=== PATIENT | female | born 1970 | race Caucasian/White ===

== ENCOUNTER → 2016-09-07 | Outpatient (CLI) | payer BC ==
--- NOTE | 2016-09-07 20:34 | Diagnostic Imaging Report ---
EXAMINATION: Right breast digital diagnostic mammogram with CAD. The current study was also evaluated with a Computer Aided Detection (CAD) system. INDICATION: Asymmetry along the central aspect of the right MLO view, implant displaced view, in particular showed the asymmetry. COMPARISON: 02/09/16. FINDINGS: The area of asymmetry appears less prominent on the current exam in the central aspect of the image displaced right MLO view, just above the nipple line, in favor of summation artifact of parenchyma. The implant appears intact. IMPRESSION: Less prominent asymmetry implant displaced right MLO view of the summation artifact of parenchyma. Another followup when the patient is due for her bilateral mammogram in January 2017 is recommended. ACR BI-RADS Category 3: Probably benign findings. Result letter will be mailed to the patient. Note: At least 10% of breast cancer is not imaged by mammography. Dictated by: Dictated on workstation # [id number]
== END ==
LOC: RAD 13:43
PROVIDERS: ATTEND Nurse Practitioner
DX: R92.8 Other abnormal and inconclusive findings on diagnostic imaging of breast (principal)

== ENCOUNTER → 2017-04-19 | Outpatient (CLI) | payer BC ==
--- NOTE | 2017-04-20 23:03 | Diagnostic Imaging Report ---
Bilateral diagnostic mammogram INDICATION: Followup exam The current study was also evaluated with a Computer Aided Detection (CAD) system. The screening mammogram performed on 02/09/16 noted asymmetric density in the central aspect of the implant on the displaced MLO view of the right breast. The subsequent diagnostic mammogram and ultrasound exam of 03/02/16 failed to show any sign of malignancy. The followup diagnostic mammogram of 09/07/16 was also unremarkable for malignancy. On this exam, there is no evidence for for malignancy in this portion of the breast. The fibroglandular tissue overlying the implants in each breast is heterogeneously dense. This does limit the sensitivity of this exam. When compared to the previous study there has been no significant change. There is no primary or secondary sign of malignancy noted. The implants themselves appear stable. There is no sign of an extracapsular rupture of either implant. IMPRESSION: 1. There is no evidence of malignancy. 2. The implants appear stable. There is no evidence for an extracapsular rupture of either implant. 3. The patient should have followup screening mammogram in one year for continued evaluation. ACR BI-RADS Category 1: Negative. Result letter will be mailed to the patient. Note: At least 10% of breast cancer is not imaged by mammography. Dictated by: Dictated on workstation # [id number]
== END ==
LOC: RAD 12:21
PROVIDERS: ATTEND Obstetrics & Gynecology
DX: R92.8 Other abnormal and inconclusive findings on diagnostic imaging of breast (principal)
CPT/HCPCS: 77066

== ENCOUNTER → 2018-05-01 | Outpatient (CLI) | payer BC ==
--- NOTE | 2018-05-01 19:46 | Diagnostic Imaging Report ---
INDICATION: Routine screening. COMPARISON: Comparison is made with prior studies from 04/19/2017 and 02/09/2016. TECHNIQUE: 2D and 3D bilateral screening mammography was performed with computer-aided detection (CAD) system. FINDINGS: Bilateral breast implants are again noted. Implant contours appear smooth. No definite evidence of extracapsular rupture is seen. Scattered fibroglandular densities throughout both breasts are noted. The parenchymal pattern is stable. No mass or malignant appearing microcalcifications are seen. The axillae are unremarkable. IMPRESSION: No mammographic features suspicious for malignancy are identified. ACR BI-RADS Category 2: Benign findings. Result letter will be mailed to the patient. Note: At least 10% of breast cancer is not imaged by mammography. Dictated by: Dictated on workstation # [id number]
== END ==
LOC: RAD 12:41
PROVIDERS: ATTEND Nurse Practitioner
DX: Z12.31 Encounter for screening mammogram for malignant neoplasm of breast (principal)
CPT/HCPCS: 77067

== ENCOUNTER → 2019-06-18 | Outpatient (CLI) | payer BC ==
--- NOTE | 2019-06-18 13:21 | Diagnostic Imaging Report ---
INDICATION: Routine screening. COMPARISON: Comparison is made with prior mammogram from 05/01/2018 and 04/19/2017. 2-D and 3-D bilateral screening mammography was performed. The current study was also evaluated with a Computer Aided Detection (CAD) system. 3-D tomosynthesis was also performed and reviewed. FINDINGS: Bilateral breast implants are again noted. Implant contours appear smooth. Scattered fibroglandular densities throughout both breasts are noted. The parenchymal pattern is stable. No mass or malignant-appearing microcalcifications are seen. Axillae are unremarkable. IMPRESSION: No mammographic features suspicious for malignancy are identified. ACR BI-RADS Category 2: Benign findings. Result letter will be mailed to the patient. Note: At least 10% of breast cancer is not imaged by mammography. Dictated by: Dictated on workstation # [id number]
== END ==
LOC: RAD 10:56
PROVIDERS: ATTEND Obstetrics & Gynecology
DX: Z12.31 Encounter for screening mammogram for malignant neoplasm of breast (principal)
CPT/HCPCS: 77067

== ENCOUNTER → 2020-06-19 | Outpatient (CLI) | payer BC ==
--- NOTE | 2020-06-19 11:43 | Diagnostic Imaging Report ---
Digital mammogram bilateral screening COMPARISONS: 06/18/2019, 05/01/2018 and 04/19/2017. There are no current complaints. FINDINGS: There are bilateral breast implants in place. The implants appear similar to the prior exam. There is no sign of an extracapsular rupture of either implant. The fibroglandular tissue overlying the implants is heterogeneously dense. This does limit the sensitivity of this exam. Overall, there does not appear to have been any significant change. There is no primary or secondary sign of malignancy noted. IMPRESSION: 1. There is no evidence for malignancy. 2. The implants appear stable. There is no sign of an extracapsular rupture of either implant. ACR BI-RADS Category 1: Negative. Result letter will be mailed to the patient. Note: At least 10% of breast cancer is not imaged by mammography. Dictated by: Dictated on workstation # [id number]
== END ==
LOC: RAD 10:51
PROVIDERS: ATTEND Obstetrics & Gynecology
DX: Z12.31 Encounter for screening mammogram for malignant neoplasm of breast (principal)
CPT/HCPCS: 77063; 77067

== ENCOUNTER → 2021-06-21 | Outpatient (CLI) | payer BC ==
--- NOTE | 2021-06-21 12:55 | Diagnostic Imaging Report ---
INDICATION: Routine screening. COMPARISON: 06/19/2020 and 06/18/2019. TECHNIQUE: 2D and 3D bilateral screening mammography was performed with CAD. FINDINGS: Bilateral breast implants are again noted. The implant contours remain smooth. Both breasts are heterogeneously dense, limiting the sensitivity of mammography. The parenchymal pattern appears to be stable. No mass or malignant-appearing microcalcifications are seen. The axillae are unremarkable. IMPRESSION: No mammographic features suspicious for malignancy are identified. ACR BI-RADS Category 2: Benign findings. Result letter will be mailed to the patient. Note: At least 10% of breast cancer is not imaged by mammography. Dictated by: Dictated on workstation # [id number]
== END ==
LOC: RAD 11:15
PROVIDERS: ATTEND Obstetrics & Gynecology
DX: Z12.31 Encounter for screening mammogram for malignant neoplasm of breast (principal)
CPT/HCPCS: 77063; 77067

== ENCOUNTER → 2022-03-07 | Outpatient (CLI) | payer BC ==
--- NOTE | 2022-03-07 12:28 | Diagnostic Imaging Report ---
PROCEDURE: CT abdomen and pelvis without contrast. TECHNIQUE: Multiple contiguous axial images were obtained through the abdomen and pelvis without the use of intravenous contrast. Auto Exposure Controls were utilized during the CT exam to meet ALARA standards for radiation dose reduction. INDICATION: Lower pelvic pain and bladder pain. COMPARISON: No prior studies are available for comparison. FINDINGS: The lung bases are clear. No focal liver mass is identified. No biliary ductal dilatation is seen. The pancreas and spleen are unremarkable. No adrenal mass is detected. No renal calculi are detected. The aorta is nonaneurysmal. The small and large bowel loops are of normal caliber. There is no obstruction. No bladder calculi are seen. No definite ureteric calculi are detected. Pelvic calcifications are consistent with phleboliths. No free fluid or fluid collection is seen. The bony structures appear nonacute. IMPRESSION: Unremarkable noncontrast CT of the abdomen and pelvis. No definite urinary tract calculus or obstruction is seen. No inflammatory changes are identified. Dictated by: Dictated on workstation # [id number]
== END ==
LOC: RAD 11:45
PROVIDERS: ATTEND Family Medicine
DX: R10.13 Epigastric pain (principal); R10.2 Pelvic and perineal pain; R31.9 Hematuria, unspecified
CPT/HCPCS: 74176

== ENCOUNTER → 2022-06-22 | Outpatient (CLI) | payer BC ==
--- NOTE | 2022-06-22 15:57 | Diagnostic Imaging Report ---
INDICATION: Routine screening. COMPARISON: 06/21/2021 and 06/19/2020. TECHNIQUE: 2D and 3D bilateral screening mammography was performed with CAD. FINDINGS: Bilateral breast implants are again noted. The implant contours remain smooth. Both breasts are heterogeneously dense, limiting the sensitivity of mammography. No mass or malignant-appearing microcalcifications are seen. The axillae are unremarkable. IMPRESSION: No mammographic features suspicious for malignancy are identified. ACR BI-RADS Category 2: Benign findings. Result letter will be mailed to the patient. Note: At least 10% of breast cancer is not imaged by mammography. Dictated by: Dictated on workstation # [id number]
== END ==
LOC: RAD 10:50
PROVIDERS: ATTEND Obstetrics & Gynecology
DX: Z12.31 Encounter for screening mammogram for malignant neoplasm of breast (principal)
CPT/HCPCS: 77063; 77067

== ENCOUNTER 2022-07-31 06:20 | Emergency (ER) | payer BC ==
[~2022-07-31] VITALS: Ht 182.9 cm; Wt 73.0 kg
[2022-07-31] MEDS ORDERED: fentaNYL INJ 100 MCG/2 ML AMP IVP ONE (06:45)
[2022-07-31] MEDS ORDERED: ONDANSETRON 4 MG/2 ML (SDV) Z0FRAN IVP ONE (06:45)
[2022-07-31] MEDS ORDERED: LACTATED RINGERS 1,000 ML IV SCH ×2 (06:45→08:00)
--- NOTE | 2022-07-31 06:56 | ED Abdominal Pain ---
General Chief Complaint: COVID19 Suspect/Confirmed Stated Complaint: ABD PAIN - COVID + 07/26 Nursing Triage Note: TO ED VIA POV AND AMBULATORY TO ROOM 5 WITH C/O TESTING POSITIVE FOR COVID WITH AT HOME TEST ON Monday07/26/22. PRIOR TO TESTING POSITIVE STATES SHE HAD BODY ACHES, COUGH, CONGESTION. LAST NOC AT 1700 DEVELOPED ABD PAIN AND WORSE THROUGH NOC AND NOW INTO LOWER BACK. Source of Information: Patient Exam Limitations: No Limitations History of Present Illness Date Seen by Provider: Jul 31, 2022 Time Seen by Provider: 06:39 Initial Comments Patient is a 51-year-old female who presents to the emergency department with a chief complaint of lower abdominal pain and back pain. Patient recently traveled to [place], came home last subsequently tested positive for COVID last Monday. She has been alternating Tylenol and ibuprofen and taking [id number]-nzf-riassbf congestion meds. She developed some lower abdominal pain last evening. Took Pepto and generic Zantac without any relief of symptoms. She did have an episode of vomiting. She did have 1 episode of loose stool earlier in the week nonblack nonbloody. Only prior abdominal surgeries are 3 C-sections. She has had some body aches congestion and cough associated with her COVID. Moving around makes her pain worse, she states she really could not find a comfortable position to sleep last night. She denies dysuria urgency or frequency. No abnormal vaginal discharge. She does believe about a year ago she had a kidney stone. All other review of systems reviewed and negative except as stated. Timing/Duration: 12 Hours Severity/Quality: Moderate ("7") Location: Epigastric, Suprapubic Radiation: Back Activities at Onset: None Modifying Factors: Worsens With Movement Associated Symptoms: Back Pain (low back), Heartburn, Nausea/Vomiting Allergies and Home Medications Allergies Coded Allergies: No Known Drug Allergies (Verified Allergy, Unknown, 07/04/07) Patient Home Medication List Home Medication List Reviewed: Yes Review of Systems Review of Systems Constitutional: see HPI, malaise EENTM: No Symptoms Reported Respiratory: Cough Cardiovascular: No Symptoms Reported Gastrointestinal: Abdominal Pain, Nausea, Poor Appetite, Vomiting Genitourinary: No Symptoms Reported Musculoskeletal: other (body aches) Skin: no symptoms reported All Other Systems Reviewed Negative Unless Noted: Yes Past Nbjpjkd-Wzgjcs-Veduai Hx Immunizations Up To Date Influenza Vaccine Up-to-Date: No; Not Current COVID19 Vaccine Director Of User Experience: [employer] Past Medical History Reproductive Disorders: No Physical Exam Vital Signs Vital Signs - First Documented 07/31/22 06:36 Temp 36.6 Pulse 83 Resp 16 B/P (MAP) 103/73 (83) Pulse Ox 98 Capillary Refill : Less Than 3 Seconds Height/Weight/BMI Height: '" Weight: lbs. oz. kg; 21.00 BMI Method: General Appearance: WD/WN, no apparent distress, thin HEENT: PERRL/EOMI Neck: normal inspection Respiratory: lungs clear, normal breath sounds, no respiratory distress, no accessory muscle use Cardiovascular: regular rate, rhythm Peripheral Pulses: 2+ Radial Pulses (R), 2+ Radial Pulses (L) Gastrointestinal: normal bowel sounds, soft; No distended, No guarding; rebound (equivocal), tenderness (suprapubic and epigastric) Extremities: normal range of motion, non-tender, normal inspection, no pedal edema, normal capillary refill Neurologic/Psychiatric: alert, normal mood/affect, oriented x 3 Skin: normal color, warm/dry Progress/Results/Core Measures Results/Orders Lab Results Laboratory Tests Test 07/31/22 06:40 07/31/22 09:09 Range/Units White Blood Count 7.0 4.3-11.0 10^3/uL Red Blood Count 4.80 3.80-5.11 10^6/uL Hemoglobin 13.8 11.5-16.0 g/dL Hematocrit 41 35-52 % Mean Corpuscular Volume 85 80-99 fL Mean Corpuscular Hemoglobin 29 25-34 pg Mean Corpuscular Hemoglobin Concent 34 32-36 g/dL Red Cell Distribution Width 12.7 10.0-14.5 % Platelet Count 160 130-400 10^3/uL Mean Platelet Volume 10.5 9.0-12.2 fL Immature Granulocyte % (Auto) 0 % Neutrophils (%) (Auto) 80 H 42-75 % Lymphocytes (%) (Auto) 13 12-44 % Monocytes (%) (Auto) 7 0-12 % Eosinophils (%) (Auto) 0 0-10 % Basophils (%) (Auto) 0 0-10 % Neutrophils # (Auto) 5.6 1.8-7.8 10^3/uL Lymphocytes # (Auto) 0.9 L 1.0-4.0 10^3/uL Monocytes # (Auto) 0.5 0.0-1.0 10^3/uL Eosinophils # (Auto) 0.0 0.0-0.3 10^3/uL Basophils # (Auto) 0.0 0.0-0.1 10^3/uL Immature Granulocyte # (Auto) 0.0 0.0-0.1 10^3/uL Sodium Level 138 135-145 MMOL/L Potassium Level 3.7 3.6-5.0 MMOL/L Chloride Level 101 98-107 MMOL/L Carbon Dioxide Level 25 21-32 MMOL/L Anion Gap 12 5-14 MMOL/L Blood Urea Nitrogen 16 7-18 MG/DL Creatinine 0.73 0.60-1.30 MG/DL Estimat Glomerular Filtration Rate 100 BUN/Creatinine Ratio 22 Glucose Level 127 H 70-105 MG/DL Calcium Level 9.0 8.5-10.1 MG/DL Serum Test, Qualitative NEGATIVE NEGATIVE Urine Color YELLOW Urine Clarity CLEAR Urine pH 6.5 5-9 Urine Specific [place] 1.020 1.016-1.022 Urine Protein NEGATIVE NEGATIVE Urine Glucose (UA) NEGATIVE NEGATIVE Urine Ketones NEGATIVE NEGATIVE Urine Nitrite NEGATIVE NEGATIVE Urine Bilirubin NEGATIVE NEGATIVE Urine Urobilinogen 0.2 < = 1.0 MG/DL Urine Leukocyte Esterase NEGATIVE NEGATIVE Urine RBC (Auto) NEGATIVE NEGATIVE Urine RBC NONE /HPF Urine WBC RARE /HPF Urine Crystals NONE /LPF Urine Bacteria NEGATIVE /HPF Urine Casts NONE /LPF Urine Mucus SMALL H /LPF Urine Culture Indicated NO My Orders Orders - LJ CUMMINS MD Ed Iv/Invasive Line Start (07/31/22 06:45) Cbc With Automated Diff (07/31/22 06:45) Basic Metabolic Panel (07/31/22 06:45) Ua Culture If Indicated (07/31/22 06:45) Hcg,Qualitative Serum (07/31/22 06:45) Lactated Ringers (Lr 1000 Ml Iv Solution (07/31/22 06:45) Fentanyl Inj (Sublimaze Injection) (07/31/22 06:45) Ondansetron Injection (Zofran Injectio (07/31/22 06:45) Ketorolac Injection (Toradol Injection) (07/31/22 08:00) Lactated Ringers (Lr 1000 Ml Iv Solution (07/31/22 08:00) Ct Abd/Pelvis Wo(Kidney Stone) (07/31/22 09:32) Medications Given in ED Current Medications Medications Dose Ordered Sig/Alexia Route Start Time Stop Time Status Last Admin Dose Admin Fentanyl Citrate 25 mcg ONCE ONCE IVP 07/31/22 06:45 07/31/22 06:52 DC 07/31/22 07:11 25 MCG Ketorolac Tromethamine 30 mg ONCE ONCE IVP 07/31/22 08:00 07/31/22 08:01 DC 07/31/22 07:52 30 MG Ondansetron HCl 4 mg ONCE ONCE IVP 07/31/22 06:45 07/31/22 06:52 DC 07/31/22 07:11 4 MG Vital Signs/I&O 07/31/22 06:36 Temp 36.6 Pulse 83 Resp 16 B/P (MAP) 103/73 (83) Pulse Ox 98 Blood Pressure Mean: 83 Progress Progress Note #1: Time: 07:47 Progress Note Patient re-checked after labs. CBC and Chem normal. Still has some low back pain. Less of a concern for acute appendicitis with more normal labs. She does not have the urge to urinate yet - will add a second liter of fluids and some toradol. Patient is thinking she may have a stone. Consideration for CT renal stone protocol once her UA is obtained and evaluated. Progress Note #2: Time: 10:23 Progress Note Patient continues to feel improved. She thinks however, her low back pain may be trying to recur a little bit. Labs have been reviewed again as well as CT noncontrast/renal stone protocol. No acute intra-abdominal findings are observed. Her vital signs are stable. Her abdominal pain may simply be as a result of her recent COVID infection. She is just now 5 days into that infection. She is able to tolerate oral intake, no persistent bloody diarrhea. No clinical or objective findings to warrant further studies from the emergency department. Supportive care is recommended. Follow-up with her primary care physician. 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 All questions are sought and answered. Patient is stable for discharge. Diagnostic Imaging Diagonstic Imaging: CT Comments [facility] [place], [place] NAME: REYNALDO GARCIA MED REC#: [id number] PT STATUS: REG ER : 1970 PHYSICIAN: LJ CUMMINS MD ADMIT DATE: 07/31/22/ER Signed Date of Exam:07/31/22 CT ABD/PELVIS WO(KIDNEY STONE) PROCEDURE: CT urinary tract, rule out kidney stone. TECHNIQUE: Multiple contiguous axial images were obtained through the abdomen and pelvis without the use of intravenous contrast. Auto Exposure Controls were utilized during the CT exam to meet ALARA standards for radiation dose reduction. INDICATION: Flank pain. Evaluate for kidney stones. COMPARISON: March 07, 2022. FINDINGS: The lung bases demonstrate minimal dependent atelectasis and are otherwise clear. There is no pleural or pericardial effusion. There are bilateral breast implants. The liver demonstrates no evidence of a focal intrahepatic abnormality. The gallbladder is nondistended. There is no radiodense stone or evidence of biliary dilatation. The pancreas demonstrates no noncontrast evidence of a focal abnormality. The spleen is normal in size. There is no adrenal mass. The kidneys are nonobstructed without findings of a radiodense stone. There is no perinephric fat stranding. There is no evidence of bowel obstruction. There is moderate stool within the colon. Diverticulosis is present without bowel thickening or diverticulitis. The bladder is nondistended. The uterus is unremarkable. There is no pelvic mass or free fluid evident. There is no adenopathy. There is no abscess or free air. The aorta is normal in caliber. There is no acute or suspicious osseous abnormality. IMPRESSION: 1. No CT evidence of an acute inflammatory or obstructive process within the abdomen or pelvis. 2. No findings of radiodense stones or hydronephrosis. 3. The visualized portions of the lungs appear clear. Dictated by: Dictated on workstation # [id number] Dict: 07/31/22 [id number] Trans: 07/31/22 [id number] [id number] Interpreted by: DAVID BRAND MD Electronically signed by: DAVID BRAND MD 07/31/22 1019 Departure Impression Primary Impression: Abdominal pain Qualified Codes: R10.9 - Unspecified abdominal pain Additional Impression: Low back pain Qualified Codes: M54.50 - Low back pain, unspecified Disposition: 01 HOME, SELF-CARE Condition: Stable Departure-Patient Inst. Decision time for Depature: 10:25 Referrals: NOLAN DOAN DO (PCP/Family) Primary Care Physician Patient Instructions: Abdominal Pain, Adult ED Add. Discharge Instructions: Drink plenty fluids to stay well-hydrated. Alternate extra strength Tylenol and 600 mg of ibuprofen which is 3 tablets of vmxp-ebt-shafnko ibuprofen every 6 hours with food as needed for aches and pains. If you develop high fever, persistent vomiting, blood in your vomit or bloody stools, worsening belly pain please come back to the emergency room for reevaluation. Please follow-up with Dr. Doan in a week. Copy Copies To 1: NOLAN DOAN KATHRYN M MD Jul 31, 2022 06:56
[2022-07-31 07:03] LABS: BASOPHILS % (AUTO) 0 % (0-10); EOSINOPHILS % (AUTO) 0 % (0-10); HEMATOCRIT 41 % (35-52); HEMOGLOBIN 13.8 g/dL (11.5-16.0); LYMPHOCYTES # (AUTO) 0.9 10^3/uL (1.0-4.0); LYMPHOCYTES % (AUTO) 13 % (12-44); MEAN CORPUSCULAR HEMOGLOBIN 29 pg (25-34); MEAN CORPUSCULAR HGB CONC 34 g/dL (32-36); MEAN CORPUSCULAR VOLUME 85 fL (80-99); MEAN PLATELET VOLUME 10.5 fL (9.0-12.2); MONOCYTES # (AUTO) 0.5 10^3/uL (0.0-1.0); MONOCYTES % (AUTO) 7 % (0-12); NEUTROPHILS # (AUTO) 5.6 10^3/uL (1.8-7.8); NEUTROPHILS % (AUTO) 80 % (42-75); PLATELET COUNT 160 10^3/uL (130-400)
[2022-07-31 07:14] LABS: CREATININE SERUM 0.73 MG/DL (0.60-1.30); POTASSIUM 3.7 MMOL/L (3.6-5.0)
[2022-07-31] MEDS ORDERED: KETOROLAC 30 MG/ML VIAL IVP ONE (08:00)
[2022-07-31 09:18] LABS: BILIRUBIN,URINE NEGATIVE (NEGATIVE); CLARITY,URINE CLEAR; COLOR,URINE YELLOW; GLUCOSE, URINE (UA) NEGATIVE (NEGATIVE); KETONES,URINE NEGATIVE (NEGATIVE); LEUKOCYTE ESTERASE ,URINE NEGATIVE (NEGATIVE); NITRITE,URINE NEGATIVE (NEGATIVE); PH,URINE 6.5 (5-9); PROTEIN,URINE NEGATIVE (NEGATIVE)
[2022-07-31 09:29] LABS: BACTERIA,URINE NEGATIVE /HPF; WBC,URINE RARE /HPF
--- NOTE | 2022-07-31 10:03 | Diagnostic Imaging Report ---
PROCEDURE: CT urinary tract, rule out kidney stone. TECHNIQUE: Multiple contiguous axial images were obtained through the abdomen and pelvis without the use of intravenous contrast. Auto Exposure Controls were utilized during the CT exam to meet ALARA standards for radiation dose reduction. INDICATION: Flank pain. Evaluate for kidney stones. COMPARISON: March 07, 2022. FINDINGS: The lung bases demonstrate minimal dependent atelectasis and are otherwise clear. There is no pleural or pericardial effusion. There are bilateral breast implants. The liver demonstrates no evidence of a focal intrahepatic abnormality. The gallbladder is nondistended. There is no radiodense stone or evidence of biliary dilatation. The pancreas demonstrates no noncontrast evidence of a focal abnormality. The spleen is normal in size. There is no adrenal mass. The kidneys are nonobstructed without findings of a radiodense stone. There is no perinephric fat stranding. There is no evidence of bowel obstruction. There is moderate stool within the colon. Diverticulosis is present without bowel thickening or diverticulitis. The bladder is nondistended. The uterus is unremarkable. There is no pelvic mass or free fluid evident. There is no adenopathy. There is no abscess or free air. The aorta is normal in caliber. There is no acute or suspicious osseous abnormality. IMPRESSION: 1. No CT evidence of an acute inflammatory or obstructive process within the abdomen or pelvis. 2. No findings of radiodense stones or hydronephrosis. 3. The visualized portions of the lungs appear clear. Dictated by: Dictated on workstation # [id number]
[2022-07-31 10:49] VITALS: BP 119/72
== END 2022-07-31 10:48 | disposition home or self-care (01) ==
LOC: EDUNIT# 06:20 → ER 06:21
DX: R10.30 Lower abdominal pain, unspecified (principal); R10.13 Epigastric pain; M54.50 Low back pain, unspecified; Z32.02 Encounter for pregnancy test, result negative; Z28.311 Partially vaccinated for COVID-19; Z86.16 Personal history of COVID-19
CPT/HCPCS: 36415; 74176; 80048; 81000; 84703; 85025